=== PATIENT | female | born 2000 | race Caucasian/White ===

== ENCOUNTER → 2020-06-19 10:10 | Outpatient (CLI) | payer OTHER, SELFPAY ==
[2020-06-19 08:46] VITALS: BMI 25.8
[2020-06-19 12:34] LABS: Probe Check PASS; Specimen Processing Control PASS
== END ==
PROVIDERS: PCP Pediatrics; Referring Provider Physician Assistant Surgical; Visit Provider Physician Assistant Surgical
DX: Z20.822 Contact with and (suspected) exposure to COVID-19 (principal)
CPT/HCPCS: 87635; U0002

== ENCOUNTER → 2020-07-20 13:24 | Outpatient (CLI) | payer OTHER, SELFPAY ==
[2020-06-19 08:46] VITALS: BMI 25.8
[2020-07-20 13:46] LABS: D-Dimer Quantitative (DVT/PE) 0.46 FEU/ug/m (0.27-0.49)
== END ==
PROVIDERS: PCP Pediatrics; Referring Provider Family Medicine; Visit Provider Family Medicine
DX: R00.2 Palpitations (principal); R55 Syncope and collapse; M94.0 Chondrocostal junction syndrome [Tietze]
CPT/HCPCS: 85379

== ENCOUNTER → 2020-09-01 10:43 | Outpatient (CLI) | payer OTHER, SELFPAY ==
[2020-08-26 09:20] VITALS: BMI 25.4
--- NOTE | 2020-09-01 10:48 | ECHOD_ITS ---
Reason For Study: TACHYCARDIA Procedure This was a 2D Doppler, Color Flow transthoracic echocardiogram. The study was technically difficult. Exam performed in department. Left Ventricle Normal LV size. Left ventricular systolic function is normal. The estimated ejection fraction is 60 %. Normal diastology for age. No regional wall motion abnormalities noted. Right Ventricle Normal RV size. Normal systolic function. Atria Normal left atrium. Normal right atrium. Mitral Valve Normal mitral valve. Tricuspid Valve Normal tricuspid valve. Aortic Valve Normal aortic valve. Trisinus/trileaflet aortic valve. Pulmonic Valve Normal pulmonic valve. Great Vessels Normal aortic root. The pulmonary artery is normal size. Normal inferior vena cava. Pericardium/Pleural No pericardial effusion. MMode/2D Measurements & Calculations LVIDd: 5.0 cm IVSd: 0.76 cm Ao root diam: 2.3 cm LVIDs: 3.4 cm LVPWd: 0.80 cm RVDd: 3.2 cm FS: 31.0 % LAV(MOD-bp): 44.8 ml ESV(MOD-sp2): 26.8 ml LA A4 area: 15.2 cm2 LAV(MOD-bp) Indexed: 24.8 ml/m2 LAV(MOD-sp2): 46.7 ml LAV(MOD-sp4): 40.5 ml LA dimension(2D): 3.3 cm RA A4 area: 10.2 cm2 Time Measurements MV dec time: 0.18 sec Doppler Measurements & Calculations MV E max lito: 92.2 cm/sec Lat Peak E' Lito: 19.1 cm/sec Med Peak E' Ltio: 11.7 cm/sec MV A max lito: 40.1 cm/sec E/E' lat: 4.8 E/E' med: 7.9 MV E/A: 2.3 Ao V2 max: 146.9 cm/sec LV V1 max: 99.0 cm/sec PA V2 max: 108.6 cm/sec Ao max P.6 mmHg LV V1 max P.9 mmHg TR max lito: 223.2 cm/sec TR max P.9 mmHg ECHO/Echo Complete Interpretation Summary Normal LV size. Left ventricular systolic function is normal. The estimated ejection fraction is 60 %. Normal diastology for age. Structurally normal valves. Ordering Physician: Benjie Leger Referring Physician: Benjie Leger Performed By: Kalpana Gillette RDCS, RVT
== END ==
PROVIDERS: Referring Provider Internal Medicine Cardiovascular Disease; Visit Provider Internal Medicine Cardiovascular Disease
DX: R00.0 Tachycardia, unspecified (principal); R00.2 Palpitations
CPT/HCPCS: 93225; 93226; 93306

== ENCOUNTER → 2020-12-10 07:49 | Outpatient (CLI) | payer OTHER, SELFPAY ==
--- NOTE | 2020-12-10 07:52 | US_ITS ---
INDICATION: ABD PAIN generalized EXAMINATION: Ultrasound US Abdomen Complete TECHNIQUE: Patel-scale and color Doppler imaging was performed of the abdomen. COMPARISON: None. FINDINGS: LIVER: There is unremarkable echogenicity. No focal hepatic lesion. No intrahepatic biliary ductal dilatation. There is no free fluid. GALLBLADDER AND BILIARY TREE: No shadowing gallstone, pericholecystic fluid or gallbladder wall thickening is demonstrated. The proximal common bile duct measures 2, which is within normal limits for the patient''s age. SONOGRAPHIC VILLARREAL''S SIGN: Negative. PANCREAS: No focal abnormality is demonstrated in the pancreas. No pancreatic ductal dilatation. SPLEEN: The spleen is normal in size and homogeneous in echotexture. The spleen measures 10.8 x 5.0 x 4.1 cm. KIDNEYS: There is no hydronephrosis. No shadowing calculus, focal lesion, or perinephric collection is demonstrated. The right kidney measures 10.7 x 4.2 x 4.5 cm. Right renal cortex is unremarkable measuring 1.7 cm. The left kidney measures 12.3 x 3.9 x 6.0 cm. Left renal cortex is unremarkable measuring 2.2 cm. VESSELS: Submitted longitudinal images of the intra-abdominal aorta demonstrate atherosclerotic calcifications but no evidence of aneurysmal dilatation or arterial dissection is seen, the abdominal aorta measures 1.9 x 1.4 cm proximally, 1.3 x 1.2 cm in its mid segment and 1.2 x 1.0 cm distally. The IVC is patent. US/Abdomen Complete IMPRESSION: No acute sonographic abnormality is demonstrated in the abdomen. Electronically Signed: Noe Fatima MD at 8:17 EDT Tel , Service support ,
--- NOTE | 2020-12-10 14:19 | US_ITS ---
STUDY: ULTRASOUND OF THE FEMALE PELVIS - COMPLETE REASON FOR EXAM: Female, 20 years old. PAIN LMP: TECHNIQUE: Transabdominal and Transvaginal TECHNICAL QUALITY: Adequate. COMPARISON: None. FINDINGS: The uterus is anteverted and is in a midline position. The uterus measures 7.3 x 5.1 x 3.6 cm. Normal uterine cervix. The endometrium measures 5 mm in thickness, and is hyperechoic. There is no demonstrated endometrial mass. There is no demonstrated myometrial mass. I.U.D. - The patient does not have an I.U.D. The right ovary is visualized. The right ovary measures 2.3 x 2 x 1.3 cm. There is no right ovarian cyst or ovarian mass. There is no visualized right adnexal mass or complex lesion. There is normal arterial and normal venous vascularity. The left ovary is visualized. The left ovary measures 1.9 x 1.7 x 0.9 cm. There is no left ovarian cyst or ovarian mass. There is no visualized left adnexal mass or complex lesion. There is normal arterial and normal venous vascularity. There is no fluid in the cul-de-sac. The pre void volume of the bladder was 521 ml. US/Pelvic (Non ) IMPRESSION: Normal female pelvis. Electronically Signed: Ashish Medrano MD at 4:47 EDT Tel , Service support ,
--- NOTE | 2020-12-10 14:19 | US_ITS ---
STUDY: ULTRASOUND OF THE FEMALE PELVIS - COMPLETE REASON FOR EXAM: Female, 20 years old. PAIN LMP: TECHNIQUE: Transabdominal and Transvaginal TECHNICAL QUALITY: Adequate. COMPARISON: None. FINDINGS: The uterus is anteverted and is in a midline position. The uterus measures 7.3 x 5.1 x 3.6 cm. Normal uterine cervix. The endometrium measures 5 mm in thickness, and is hyperechoic. There is no demonstrated endometrial mass. There is no demonstrated myometrial mass. I.U.D. - The patient does not have an I.U.D. The right ovary is visualized. The right ovary measures 2.3 x 2 x 1.3 cm. There is no right ovarian cyst or ovarian mass. There is no visualized right adnexal mass or complex lesion. There is normal arterial and normal venous vascularity. The left ovary is visualized. The left ovary measures 1.9 x 1.7 x 0.9 cm. There is no left ovarian cyst or ovarian mass. There is no visualized left adnexal mass or complex lesion. There is normal arterial and normal venous vascularity. There is no fluid in the cul-de-sac. The pre void volume of the bladder was 521 ml. US/Transvaginal Non- IMPRESSION: Normal female pelvis. Electronically Signed: Ashish Medrano MD at 4:47 EDT Tel , Service support ,
== END ==
PROVIDERS: Referring Provider Nurse Practitioner Family; Visit Provider Nurse Practitioner Family
DX: R10.2 Pelvic and perineal pain (principal); R14.0 Abdominal distension (gaseous); R10.84 Generalized abdominal pain
CPT/HCPCS: 76700; 76830; 76856; 93976

== ENCOUNTER 2020-12-11 17:37 | Emergency (ER) | payer OTHER, SELFPAY ==
[2020-12-11 17:38] VITALS: BP 145/96; PULSE 77; RESP 18; TEMP 36.1; O2SAT 100; BMI 26.1
--- NOTE | 2020-12-11 18:22 | EDS_ITS ---
HPI History of Present Illness Chief Complaint: Abd Pain Informant: patient Narrative Narrative: 20-year-old female presents to the emergency room with lower abdominal pain. She tells me that for the past 2 weeks she has had a sharp pain in her pelvis but now seems to be radiating up towards her stomach and she feels nauseated. She went to her primary care physician and yesterday had an abdominal ultrasound and a pelvic including transvaginal ultrasound performed. She started her period today. She called the office but was not able to get the results of the testing. She states the pain is sharp and near constant but not all the time. [facility] Medical History ADD (attention deficit disorder) Costochondritis (2017) History of panic attacks Migraines Home Medications desogestrel 0.15 mg-ethinyl estradiol 0.03 mg tablet 1 tab PO DAILY tab 08/24/20 [History Last Taken Unknown] Allergy/AdvReac Type Severity Reaction Status Date / Time No Known Allergies Allergy Verified 12/11/20 17:39 Family History Other Migraine Social History Smoking Status: Never smoker alcohol intake: never substance use type: does not use caffeine: No ROS ROS ED Constitutional Constitutional ED: Denies chills or weight loss Eyes Eyes: Denies change in vision or diplopia ENT ENT ED: Denies ear pain, rhinorrhea or sore throat Cardiovascular Cardiovascular: Denies chest pain, orthopnea, palpitations or racing heartbeat Respiratory/Chest Respiratory/Chest: Denies cough, dyspnea or orthopnea Gastrointestinal Gastrointestinal: Reports abdominal pain and nausea; Denies diarrhea or vomiting Genitourinary Genitourinary ED: Denies dysuria, hematuria or urinary frequency Musculoskeletal Musculoskeletal: Denies arthralgias or myalgias Integumentary Denies abscess or rash Neurologic Neurologic: Denies headache(s) or weakness Psychiatric Psychiatric: Denies anxiety, depression, suicidal ideation or suicidal thoughts Endocrine Endocrinology: Denies polydipsia, polyphagia or polyuria Allergic/Immunologic Allergic/Immunologic ED: Denies mouth swelling, tongue swelling or urticaria EXAM Physical Exam Const Vital Signs: 12/11/20 17:38 12/11/20 19:38 Temperature 97 F L Temperature Source Temporal Pulse Rate 77 69 Respiratory Rate 18 16 Blood Pressure 145/96 H 116/74 Blood Pressure Mean 112 88 Pulse Ox 100 99 Positive well nourished and well developed General Appearance ED: well developed HEENT Reports normocephalic, head/scalp atraumatic and moist mucous membranes Eyes PERRL and EOMs intact bilaterally Neck no lymphadenopathy, supple and no JVD Resp normal respiratory effort and clear to auscultation bilaterally Cardio regular rate, regular rhythm and no murmurs GI normal to inspection, nondistended, normoactive bowel sounds and non-tender Palpation: soft Back/Spine no CVA tenderness and normal ROM Extremity normal to inspection General Extremety ED: Negative for edema General Extremity: Negative for edema Neuro oriented x3 and CN's II-XII intact bilaterally Sensorium / Orientation: alert Motor Exam: strength 5/5 throughout Psych mental status grossly normal Mood & Affect: Negative for depressed or tearful Skin no rashes or lesions noted and no wounds MDM MDM MDM Narrative Medical decision making narrative: Patient's abdominal ultrasounds and pelvic ultrasounds are negative. Her white count is 6.9 with no shift. Her urine is normal. At this point I do not think we need a CT. I would recommend some anti-inflammatories. Follow-up with gynecology if not improving Lab Data Attestation: I reviewed the patient's lab results. Labs: Laboratory Results - last 24 hr 12/11/20 12/11/20 17:50 19:00 WBC 6.9 RBC 4.84 Hgb 11.8 L Hct 38.1 MCV 78.7 L MCH 24.4 L MCHC 31.0 L RDW Std Deviation 40.2 RDW Coeff of Argelia 14.1 Plt Count 355 MPV 10.2 Immature Gran % (Auto) 0.300 Neut % (Auto) 54.7 Lymph % (Auto) 36.2 [place] % (Auto) 7.7 Eos % (Auto) 1.0 Baso % (Auto) 0.1 Absolute Neuts (auto) 3.8 Absolute Lymphs (auto) 2.50 Nucleated RBC % 0 Urine Color Yellow Urine Clarity Sl. Cloudy Urine pH 6.5 Ur Specific [place] 1.010 Urine Protein Negative Urine Glucose (UA) Normal Urine Ketones Negative Urine Occult Blood 150 H Urine Nitrite Negative Urine Bilirubin Negative Urine Urobilinogen Normal Ur Leukocyte Esterase Negative Urine RBC 0 SEEN Urine WBC 0 SEEN Ur Squamous Epith Cells 0-5 SEEN Urine Bacteria 0 SEEN Urine Mucus 0 SEEN Discharge Plan Triage Chief Complaint: Abd Pain ED Provider: Rah Reyna Dx/Rx/DC Orders Clinical Impression: Pelvic pain Instructions: ED Pelvic Pain, Unknown Cause Prescriptions: No Action desogestrel-ethinyl estradiol 0.15-0.03 mg tablet 1 tab PO DAILY RF: 0 Primary Care Provider: Monique Arvizu NP Referrals: Monique Arvizu NP, [employer] [Primary Care Provider] - 1 Week if not improving Disposition Disposition: Home, Self Care
[2020-12-11 18:54] LABS: Bacteria 0 SEEN /hpf (None Seen); Mucous, Urine 0 SEEN /hpf (<or=2+); Red Blood Cells-Urine 0 SEEN /hpf (0-5); White Blood Cells 0 SEEN /hpf (0-5)
[2020-12-11] MEDS: Ketorolac 30 MG/ML Syringe IV (18:57)
[2020-12-11 19:10] LABS: Absolute Neutrophil Count 3.8 X10^3/uL (2.0-7.7); Basophil# 0.01 X10^3/uL; Basophil% 0.1 % (0-1); Eosinophil# 0.07 X10^3/uL; Hematocrit 38.1 % (37-47); Hemoglobin 11.8 g/dL (12.0-15.0); Lymphocyte % 36.2 % (19-41); Mean Corpuscular Hgb 24.4 pg (27.0-32.0); Mean Corpuscular Volume 78.7 fL (81-99); Mean Platelet Vol. 10.2 fl (6.2-12.0); Monocyte# 0.53 X10^3/uL; Monocyte% 7.7 % (0-10); NRBC Flagged by Analyzer 0 % (0-5); Neutrophil # 3.77 X10^3/uL (2.7-7.7); Neutrophil % 54.7 % (47-70); Platelet Count 355 K/mm3 (150-450); RBC Distribution Width CV 14.1 % (11.6-14.6); RBC Distribution Width SD 40.2 fl (35.1-43.9); Red Blood Count 4.84 M/mm3 (4.2-5.4); White Blood Count 6.9 K/mm3 (4.4-11.0)
[2020-12-11 19:11] LABS: Color, Urine Yellow (Yellow); Glucose, Dipstick Normal (Normal); Ketone-Dipstick Negative (Negative); Leukocyte Esterase-Dipstick Negative /ul (Negative); Nitrite-Dipstick Negative (Negative); Occult Blood-Urine 150 /ul (Negative); Protein-Dipstick Negative (Negative); Urine Bilirubin Dipstick Negative (Negative); Urine Clarity Sl. Cloudy (Clear); Urine Urobilinogen Normal (Normal); Urine pH 6.5 (5.0 - 8.0)
[2020-12-11 19:35] LABS: Squamous Epithelial Cells - UA 0-5 SEEN /hpf (5-10)
[2020-12-11 19:38] VITALS: BP 116/74; PULSE 69; RESP 16; O2SAT 99
== END 2020-12-11 19:48 | disposition home or self-care (01) ==
PROVIDERS: Emergency Provider Emergency Medicine; PCP Nurse Practitioner Family
DX: R10.2 Pelvic and perineal pain (principal); F98.8 Other specified behavioral and emotional disorders with onset usually occurring in childhood and adolescence
CPT/HCPCS: 81001; 85025; 96374; 99285; A4216